=== PATIENT | male | born 1975 | race Caucasian/White ===

== ENCOUNTER 2021-04-06 04:22 | Day surgery (SDC) | payer OTHER ==
[2021-04-03 11:38] VITALS: BMI 27.0
[2021-04-06] MEDS ORDERED: IOHEXOL 180 MG/1 ML ML IJ ONE (10:00)
[2021-04-06] MEDS ORDERED: LIDOCAINE HCL 1% PRESERVATIVE FREE - 30ML VIAL IJ ONE (10:00)
[2021-04-06] MEDS ORDERED: DEXAMETHASONE SOD PHOSPHATE 10 MG/1 ML VIAL IVPUSH ONE (10:01)
[2021-04-06 10:37] VITALS: TEMP 98.2
[2021-04-06 11:34] VITALS: BP 120/70; PULSE 64
== END 2021-04-06 11:00 | disposition home or self-care (01) ==
LOC: JASU-SURG 04:22 → EDSEX 10:30 → JASU-SURG 11:00
PROVIDERS: ATTEND Pain Medicine Pain Medicine
PROC: 3E0R33Z Introduction of Anti-inflammatory into Spinal Canal, Percutaneous Approach (ICD-10-PCS; 2021-04-06)
PROC: 3E0R3BZ Introduction of Anesthetic Agent into Spinal Canal, Percutaneous Approach (ICD-10-PCS; principal; 2021-04-06 10:30)
DX: M54.16 Radiculopathy, lumbar region (principal)
CPT/HCPCS: 76000-TC-FY; J1100

== ENCOUNTER 2021-04-27 04:29 | Day surgery (SDC) | payer OTHER ==
[2021-04-26 16:10] VITALS: BMI 27.0
[2021-04-27] MEDS ORDERED: LIDOCAINE 1% P/F 10 MG/ML VIAL INF ONE (14:11)
[2021-04-27] MEDS ORDERED: IOHEXOL 180 MG/1 ML ML IJ ONE (14:12)
[2021-04-27] MEDS ORDERED: DEXAMETHASONE SOD PHOSPHATE 10 MG/1 ML VIAL IM ONE (14:14)
[2021-04-27 14:53] VITALS: BP 127/67; PULSE 78; TEMP 97.7
== END 2021-04-27 14:35 | disposition home or self-care (01) ==
LOC: JASU-SURG 04:29
PROVIDERS: ATTEND Pain Medicine Pain Medicine
PROC: 3E0R33Z Introduction of Anti-inflammatory into Spinal Canal, Percutaneous Approach (ICD-10-PCS; 2021-04-27)
PROC: 3E0R3BZ Introduction of Anesthetic Agent into Spinal Canal, Percutaneous Approach (ICD-10-PCS; principal; 2021-04-27 14:30)
DX: M54.16 Radiculopathy, lumbar region (principal)
CPT/HCPCS: 76000-TC-FY; J1100